=== PATIENT | female | born 1935 | race Caucasian/White ===

== ENCOUNTER 2017-02-10 10:43 | Day surgery (SDC) | payer OTHER ==
[~2017-02-10] VITALS: Ht 146.1 cm; Wt 43.1 kg
[~2017-02-10 10:43] MED LIST: ASCORBIC ACID100 MG PO; ASCORBIC ACID500 M3 PO; B COMPLETE1 EACH PO; BIOTIN2500 MCG PO; CIPRO500 MG PO; FLAGYL500 MG PO; FOLIC ACID1 MG PO; GLUCOSAMINE &1 EAC1 PO; LISINOPRIL10 MG PO; LO-DOSE ASPIRIN81 M2 PO; MAGNESIUM400 M1 PO; MIRALAX255 GM PO; VITAMIN D-32000 UNI2 PO; VITAMIN D31000 UNI2 PO
[2017-02-10 11:34] VITALS: BP 140/64
[2017-02-10 16:10] VITALS: BP 148/64
[2017-02-10 17:10] VITALS: BP 142/88
[2017-02-10 18:12] VITALS: BP 140/62
== END 2017-02-10 18:15 | disposition home or self-care (01) ==
LOC: SDC 10:43
DX: M20.41 Other hammer toe(s) (acquired), right foot (principal); M20.11 Hallux valgus (acquired), right foot; M79.674 Pain in right toe(s); M77.41 Metatarsalgia, right foot; S93.144A Subluxation of metatarsophalangeal joint of right lesser toe(s), initial encounter; M96.1 Postlaminectomy syndrome, not elsewhere classified; I10 Essential (primary) hypertension; Z79.82 Long term (current) use of aspirin; Z80.0 Family history of malignant neoplasm of digestive organs; Z88.8 Allergy status to other drugs, medicaments and biological substances
CPT/HCPCS: C1713; J0690; J3010; S0020

== ENCOUNTER 2017-08-30 08:45 | Day surgery (SDC) | payer OTHER ==
[~2017-08-30] VITALS: Ht 144.8 cm; Wt 43.1 kg
[~2017-08-30 08:45] MED LIST changes: +NIZORAL 2% CREA15 GM TP; +ONE DAILY1 EAC3 PO
[2017-08-30 09:31] VITALS: BP 137/58
[2017-08-30] MEDS ORDERED: NORCO 5/3251 TABLET PO (12:25)
[2017-08-30 12:58] VITALS: BP 136/59
[2017-08-30 14:15] VITALS: BP 114/50
== END 2017-08-30 14:15 | disposition home or self-care (01) ==
LOC: SDC 08:45
PROC: 0YU50JZ Supplement Right Inguinal Region with Synthetic Substitute, Open Approach (ICD-10-PCS; principal; 2017-08-30)
DX: K40.90 Unilateral inguinal hernia, without obstruction or gangrene, not specified as recurrent (principal); I10 Essential (primary) hypertension; I25.10 Atherosclerotic heart disease of native coronary artery without angina pectoris; N28.9 Disorder of kidney and ureter, unspecified; R63.6 Underweight; Z68.20 Body mass index [BMI] 20.0-20.9, adult; M81.0 Age-related osteoporosis without current pathological fracture; Z79.82 Long term (current) use of aspirin
CPT/HCPCS: C1781; J0131; J0690; J1100; J2405; J3010; S0020